=== PATIENT | female | born 1975 | race American Indian/Alaskan Native ===

== ENCOUNTER 2017-08-06 14:16 | Emergency (ER) | payer SELFPAY ==
[2017-08-06 16:05] VITALS: BP 115/78
== END 2017-08-06 17:51 | disposition left against medical advice (07) ==
LOC: ED 14:16
DX: M54.9 Dorsalgia, unspecified (principal); Z53.21 Procedure and treatment not carried out due to patient leaving prior to being seen by health care provider

== ENCOUNTER 2018-01-30 09:35 | Emergency (ER) | payer SELFPAY ==
[2018-01-30 09:40] VITALS: BP 127/86
--- NOTE | 2018-01-30 12:03 | Emergency Department Report ---
ED Back Pain/Injury HPI - General Chief Complaint: Back Pain/Injury Stated Complaint: LOWER BACK/HIP PAIN Time Seen by Provider: 01/30/18 11:34 Source: patient Limitations: No Limitations - History of Present Illness Initial Comments: This is a 42-year-old -[place] female that presents with low back pain that is radiating down right lower extremity for 6 months to a year. She reports pain has increased over the past 2-3 weeks. Pain is bilateral lower back with sciatica: Right lower extremity from right hip to the right thigh. Patient admits to history chronic low back pain and chronic bilateral knee pain. Patient had a total knee replacement March 2015. Patient states now right knee is achy along with back pain. She is being followed in the [facility] in 2 insurance resumes. They currently have her alternating Tylenol and ibuprofen which is not improving symptoms. Patient admits to having a numbness to right lower extremity with sharp radiating pain from back. Patient states pain is affecting sleep is very difficult for her to sit for long periods of time. She denies nausea or vomiting, chest pain, change in voiding or bowel pattern, frequency, urgency, dysuria, fever, sharp pop sensation or sound, and recent injury. MD Complaint: back pain Onset/Timin -: month(s) Similar Symptoms Previously: Yes Place: home Radiation: right leg Severity: severe Severity scale (0 -10): 8 Quality: burning, sharp Consistency: constant Improves With: immobilization Worsens With: movement, sitting upright, walking Context: unknown Associated Symptoms: numbness, difficulty walking. denies: confusion, weakness , chest pain, cough, difficulty urinating, diaphoresis, incontinence, fever/ chills, constipation, headaches, abdominal pain, loss of appetite, malaise, nausea/vomiting, rash, seizure, shortness of breath, syncope Treatments Prior to Arrival: NSAIDS - Related Data Previous Rx's Medication Instructions Recorded Last Taken Type Acetaminophen/Codeine [Tylenol 1 tab PO Q6H PRN #15 tab 01/30/18 Unknown Rx /Codeine # 3 tab] Cyclobenzaprine HCl [Flexeril 5 MG 5 mg PO TID PRN #15 tab 01/30/18 Unknown Rx TAB] Psyllium Husk [Metamucil] 0.4 gm PO DAILY #20 capsule 01/30/18 Unknown Rx Allergies Allergy/AdvReac Type Severity Reaction Status Date / Time No Known Allergies Allergy Unverified 08/06/17 16:05 ED Review of Systems ROS: Stated complaint: LOWER BACK/HIP PAIN Other details as noted in HPI Constitutional: denies: chills, fever Respiratory: denies: cough, shortness of breath, wheezing Cardiovascular: denies: chest pain, palpitations Gastrointestinal: denies: abdominal pain, nausea, diarrhea Musculoskeletal: back pain (low back pain radiating to right lower extremity). denies: joint swelling Skin: denies: rash, lesions Neurological: numbness (right lower extremity). denies: headache, weakness, paresthesias Psychiatric: denies: anxiety, depression ED Past Medical Hx - Past Medical History chronic back pain/hip pain ED Back Pain Physical Exam - Exam General: Vital signs noted. No distress. Alert and acting appropriately. Back/Abdomen: Yes Sacroiliac Tenderness (above right sacral iliac joint), Yes Straight Leg Raise Pain (right lower extremity), No Abdominal Tenderness, No Perithoracic Tenderness, No Perilumbar Tenderness, No Flank Tenderness Neuro: Yes Normal Sensation, Yes Normal DTR's, Yes Normal Gait, No Motor Weakness ED Course Vital Signs 01/30/18 09:38 Temperature 98.4 F Pulse Rate 86 Respiratory 16 Rate Blood Pressure 127/86 O2 Sat by Pulse 98 Oximetry Ed Back Pain Tests - Tests Tests: Normal UA, Abnormal X Rays ED Medical Decision Making - Radiology Data Radiology results: report reviewed EXAM: XR SPINE LUMBOSACRAL 2-3V HISTORY: low back pain with right lower extremity sciatica TECHNIQUE: 3 views of the lumbar spine PRIORS: None. FINDINGS: Slight lumbar curvature with upper left apex. Prominent stool may reflect constipation. Vertebral compression fracture: None Anterolisthesis: None Retrolisthesis: None Disc narrowing: None Degenerative change: Slight at the lower facet joints IMPRESSION: No acute skeletal pathology Slight lower degenerative change Prominent stool may reflect constipation Slight lumbar curvature with upper left apex EXAM: XR HIP 2-3V RT HISTORY: right hip pain TECHNIQUE: One view of the pelvis One view of the right hip PRIORS: None. FINDINGS: Smoothly marginated nonspecific small sclerotic focus in the left acetabulum may be a bone island. No evidence of acute fracture or dislocation. No significant degenerative change. No definite hip joint space narrowing. IMPRESSION: No radiographic evidence of definite acute skeletal pathology - Medical Decision Making This is a 42 y.o. female presents with low back pain radiating to right lower extremity for 6 months. Patient was examined by me. Vitals are normal and patient is in slight distress. Obtained a urinalysis, urine hCG, x-ray of L- spine and x-ray of right hip. Urinalysis and urine hCG negative. X-rays read by radiologist and no acute findings. No radiographic evidence of definite acute skeletal pathology No acute skeletal pathology. Slight lower degenerative change. Prominent stool may reflect constipation. Slight lumbar curvature with upper left apex . Patient informed of results. Start Tylenol No. 3 and cyclobenzaprine for pain and MiraLAX for constipation. Plan discussed with patient to discharge home and treat outpatient. She agrees with ER plan. Patient discharged home in stable condition. Follow up with PCP in 2-3 days Critical care attestation.: If time is entered above; I have spent that time in minutes in the direct care of this critically ill patient, excluding procedure time. ED Disposition Clinical Impression: Strain of muscle, fascia and tendon of lower back, initial encounter, Right hip pain Low back pain Qualifiers: Chronicity: acute Back pain laterality: bilateral Sciatica presence: with sciatica Sciatica laterality: sciatica of right side Qualified Code(s): M54.41 - Lumbago with sciatica, right side Constipation Qualifiers: Constipation type: slow transit constipation Qualified Code(s): K59.01 - Slow transit constipation Disposition: DC- TO HOME OR SELFCARE Is pt being admited?: No Does the pt Need Aspirin: No Condition: Stable Instructions: Muscle Strain (ED), Lumbar Radiculopathy (ED), Constipation (ED) , High Fiber Diet (ED) Additional Instructions: Rest, use ice or heat on affected area for 20 minutes and off for 2 hours. Take pain medication as needed for pain. Don't drive or operate heavy machinery while taking muscle relaxers because they may cause drowsiness. Increase fiber intake with foods and/or metamucil. Increase water intake and drink or eat prunes. Take colace daily to soften stool. Follow up with Primary Care Provider in 2-3 days. Prescriptions: Acetaminophen/Codeine [Tylenol /Codeine # 3 tab] 1 tab PO Q6H PRN #15 tab PRN Reason: Pain , Severe (7-10) Cyclobenzaprine HCl [Flexeril 5 MG TAB] 5 mg PO TID PRN #15 tab PRN Reason: Muscle Spasm Psyllium Husk [Metamucil] 0.4 gm PO DAILY #20 capsule Referrals: [facility] [Outside] - 3-5 Days [facility] [Outside] - 3-5 Days [facility] [Outside] - 3-5 Days Time of Disposition: 14:39 Print Language: KINYARWANDA
[2018-01-30] MEDS ORDERED: NORCO 5/325 PO ONE (12:07)
[2018-01-30 12:39] LABS: Bilirubin,Urine NEG (Negative); Blood,Urine NEG (Negative); Color,Urine Straw (Yellow); Protein,Urine <15 mg/dL mg/dL (Negative); Urobilinogen,Urine < 2.0 mg/dL (<2.0)
[2018-01-30 12:41] LABS: HCG Qualitative,Urine Negative (Negative)
--- NOTE | 2018-01-30 13:55 | XRay Report ---
FINAL REPORT EXAM: XR SPINE LUMBOSACRAL 2-3V HISTORY: low back pain with right lower extremity sciatica TECHNIQUE: 3 views of the lumbar spine PRIORS: None. FINDINGS: Slight lumbar curvature with upper left apex. Prominent stool may reflect constipation. Vertebral compression fracture: None Anterolisthesis: None Retrolisthesis: None Disc narrowing: None Degenerative change: Slight at the lower facet joints IMPRESSION: No acute skeletal pathology Slight lower degenerative change Prominent stool may reflect constipation Slight lumbar curvature with upper left apex
--- NOTE | 2018-01-30 13:57 | XRay Report ---
FINAL REPORT EXAM: XR HIP 2-3V RT HISTORY: right hip pain TECHNIQUE: One view of the pelvis One view of the right hip PRIORS: None. FINDINGS: Smoothly marginated nonspecific small sclerotic focus in the left acetabulum may be a bone island. No evidence of acute fracture or dislocation. No significant degenerative change. No definite hip joint space narrowing. IMPRESSION: No radiographic evidence of definite acute skeletal pathology
== END 2018-01-30 14:46 | disposition home or self-care (01) ==
LOC: ED 09:35
DX: S39.012A Strain of muscle, fascia and tendon of lower back, initial encounter (principal); K59.01 Slow transit constipation; M25.551 Pain in right hip; G89.29 Other chronic pain; X58.XXXA Exposure to other specified factors, initial encounter; Y93.89 Activity, other specified; Y92.89 Other specified places as the place of occurrence of the external cause; Y99.8 Other external cause status
CPT/HCPCS: 72100; 81001; 81025